=== PATIENT | female | born 1980 | race American Indian/Alaskan Native ===

== ENCOUNTER 2019-02-18 03:24 | Emergency (ER) | payer SELFPAY ==
--- NOTE | 2019-02-18 05:10 | Emergency Department Report ---
<ANMOL ADAMS - Last Filed: 02/18/19 05:07> ED Psych HPI - General Chief Complaint: Pain General Stated Complaint: MH EVAL Time Seen by Provider: 02/18/19 04:05 Source: patient Mode of arrival: Ambulatory - History of Present Illness Initial Comments: Patient is a 38-year-old Afro[place] female who was brought in for medical clearance for psychiatric evaluation. Patient was picked up outside of [facility] in the rain. Patient was complaining of being hungry and having no vertigo. When further questioned patient states she is suicidal and wants help with her crack cocaine addiction. Patient states she's had suicidal thoughts for approximately a year and has no active plan. He denies homicidal ideations. Patient states she is not having any auditory or visual hallucinations - Related Data Home Medications Medication Instructions Recorded Confirmed Last Taken Ferrous Sulfate [Iron Supplement] 650 mg PO Q6H 02/08/13 02/18/19 Unknown Sertraline [Zoloft] 100 mg PO QDAY 02/08/13 02/18/19 12/10/12 Allergies Allergy/AdvReac Type Severity Reaction Status Date / Time No Known Allergies Allergy Unverified 02/08/13 03:03 ED Review of Systems Comment: All other systems reviewed and negative ED Past Medical Hx - Past Medical History Hx Psychiatric Treatment: Yes (depression) Hx Asthma: Yes Additional medical history: fibroid tumor - Social History Smoking Status: Current Every Day Smoker Substance Use Type: Cocaine - Medications Home Medications: Home Medications Medication Instructions Recorded Confirmed Last Taken Type Ferrous Sulfate [Iron Supplement] 650 mg PO Q6H 02/08/13 02/18/19 Unknown History Sertraline [Zoloft] 100 mg PO QDAY 02/08/13 02/18/19 12/10/12 History ED Physical Exam - General Limitations: No Limitations General appearance: alert, in no apparent distress - Head Head exam: Present: atraumatic, normocephalic - Eye Eye exam: Present: normal appearance - ENT ENT exam: Present: mucous membranes moist - Neck Neck exam: Present: normal inspection - Respiratory Respiratory exam: Present: normal lung sounds bilaterally. Absent: respiratory distress, wheezes, rales, rhonchi - Cardiovascular Cardiovascular Exam: Present: regular rate, normal rhythm, normal heart sounds. Absent: systolic murmur, diastolic murmur, rubs, gallop - GI/Abdominal GI/Abdominal exam: Present: soft, normal bowel sounds. Absent: distended, tenderness, guarding, rebound - Extremities Exam Extremities exam: Present: normal inspection - Back Exam Back exam: Present: normal inspection - Neurological Exam Neurological exam: Present: alert, oriented X3 - Psychiatric Psychiatric exam: Present: agitated - Skin Skin exam: Present: warm, dry, intact, normal color. Absent: rash ED Disposition Clinical Impression: Suicidal ideation Disposition: DC- TO HOME OR SELFCARE Condition: Stable [facility]errals: [facility]Outside[facility] - 3-5 Days <VIVIAN ADAMS - Last Filed: 02/18/19 15:56> ED Review of Systems ROS: Stated complaint: LAURENCE Other details as noted in HPI ED Course Vital Signs 02/18/19 02/18/19 07:00 13:47 Temperature 98.3 F Pulse Rate 79 80 Respiratory 18 18 Rate Blood Pressure 118/62 122/71 [Right] O2 Sat by Pulse 98 Oximetry ED Medical Decision Making - Lab Data Result diagrams: 02/18/19 04:40 02/18/19 04:40 - Medical Decision Making Ms. Simmons has been cleared by workplace trainer and assessor. Dc'd home. Critical care attestation.: If time is entered above; I have spent that time in minutes in the direct care of this critically ill patient, excluding procedure time. ED Disposition Is pt being admited?: No Does the pt Need Aspirin: No
[2019-02-18 05:12] LABS: Hematocrit 41.3 % (30.3-42.9); Hemoglobin 14.2 gm/dl (10.1-14.3); Mean Corpuscular HGB Conc 35 % (30-34); Mean Corpuscular Volume 88 fl (79-97); Red Blood Count 4.69 M/mm3 (3.65-5.03); Red Cell Distribution Width 14.1 % (13.2-15.2)
[2019-02-18 05:13] LABS: Basophils % (Auto) 0.8 % (0.0-1.8); Eosinophils # (Auto) 0.1 K/mm3 (0.0-0.4); Eosinophils % (Auto) 1.1 % (0.0-4.3); Lymphocytes # (Auto) 1.3 K/mm3 (1.2-5.4); Lymphocytes % (Auto) 23.9 % (13.4-35.0); Monocytes # (Auto) 0.6 K/mm3 (0.0-0.8); Monocytes % (Auto) 11.9 % (0.0-7.3); Platelet Count 274 K/mm3 (140-440)
[2019-02-18 05:21] LABS: BUN/Creatinine Ratio 10; Blood Urea Nitrogen 6 mg/dL (7-17); Calcium 9.4 mg/dL (8.4-10.2); Hemolysis Index 25
[2019-02-18 07:46] LABS: Bacteria,Urine 1+ /HPF (Negative); Bilirubin,Urine NEG (Negative); Blood,Urine SM (Negative); Color,Urine Yellow (Yellow); Mucus,Urine 3+ /HPF
[2019-02-18 07:54] LABS: Amphetamine Screen,Urine PRESUMPTIVE NEGATIVE; Benzodiazepines Screen,Urine PRESUMPTIVE NEGATIVE; Methadone Screen,Urine PRESUMPTIVE NEGATIVE; Opiate Screen,Urine PRESUMPTIVE NEGATIVE
[2019-02-18 08:21] LABS: Cannabinoid Screen,Urine PRESUMPTIVE POSITIVE; Cocaine Screen,Urine PRESUMPTIVE POSITIVE
[2019-02-18 13:49] VITALS: BP 122/71
== END 2019-02-18 16:15 | disposition home or self-care (01) ==
LOC: ED 03:24 → EEVIPCON 03:24 → ED 16:15
DX: F32.9 Major depressive disorder, single episode, unspecified (principal); J45.909 Unspecified asthma, uncomplicated; F17.200 Nicotine dependence, unspecified, uncomplicated; F14.10 Cocaine abuse, uncomplicated; Z79.899 Other long term (current) drug therapy
CPT/HCPCS: 36415; 80048; 80307; 80320; 81001; 84703; 85025; G0480